=== PATIENT | female | born 1985 | race African-American/Black ===

== ENCOUNTER 2019-06-14 08:45 | Emergency (ER) | payer SELFPAY ==
[~2019-06-14] VITALS: Ht 167.6 cm; Wt 81.6 kg
[2019-06-14 08:59] VITALS: BP 112/78
[2019-06-14] MEDS ORDERED: Ketorolac 60mg Inj IM ONE (09:00)
--- NOTE | 2019-06-14 09:00 | NUR ---
ED Nurse Note: A/OX4. REPORTS OF HAVING FLU-LIKE SYMPTOMS LIKE SORE THROAT, COUGH, ABD PAIN X3DAYS AND REPORTS NO RECENT TRAVEL OR CLOSE CONTACT WITH ANYONE SICK BUT GOES TO SCHOOL. BREATHING NORMAL/EVEN/UNLABORED. SKIN WARM/DRY/INTACT. NAD NOTED.
--- NOTE | 2019-06-14 09:08 | Emergency Room Report ---
History of Present Illness General Chief Complaint: Flu Like Symptoms Source: Patient Present Illness HPI Patient presents with complaints of loss of her voice Also complains of vomiting and diarrhea Questionable chills but denies any documented fever denies any headache denies any posterior neck pain denies any recent travel or contact with anyone that she knows had travel Denies any rash Denies any posterior neck pain or photophobia symptoms started about 3 days ago COVID-19 risk:Travel to affect: No Allergies: Coded Allergies: No Known Allergies (Unverified , 06/14/19) Patient History Past Medical History: see triage record Last Menstrual Period: 06/11/19 Reviewed Nursing Documentation: PMH: Agreed; PSxH: Agreed Nursing Documentation-PMH Past Medical History: No Stated History Review of Systems All Other Systems: negative except mentioned in HPI Physical Exam Vital Signs Date Time Temp Pulse Resp B/P (MAP) Pulse Ox O2 Delivery O2 Flow Rate FiO2 06/14/19 08:53 99.3 88 16 112/78 (89) 99 Room Air Sp02 EP Interpretation: reviewed, normal General Appearance: well appearing, no apparent distress Head: normocephalic, atraumatic Eyes: bilateral eye PERRL, bilateral eye EOMI ENT: EOM grossly intact, other - Pharyngeal erythema airway patent, patient also has consistent findings of laryngitis Neck: full range of motion, supple Respiratory: lungs clear, no respiratory distress, no retraction Cardiovascular #1: regular rate, rhythm Gastrointestinal: non tender, soft Musculoskeletal: normal inspection Neurologic: alert, oriented x3 Psychiatric: normal inspection Skin: no rash Lymphatic: no adenopathy Medical Decision Making Diagnostic Impression: Primary Impression: Laryngitis ER Course Given the patient's history and presentation multiple differentials and consideration Including but not limited to coronavirus, laryngitis, pharyngitis, retropharyngeal abscess, peritonsillar abscess Department of Health does not consider the patient appropriate for testing at this time Patient's exam and findings are consistent with laryngitis Uvula is midline Patient does not appear septic or toxic and will have initial conservative outpatient trial given some of the erythema on the pharyngeal area consideration for bacteria is also entertained Patient placed on antibiotics Patient will return to the ER with any worsening symptoms Last Vital Signs Date Time Temp Pulse Resp B/P (MAP) Pulse Ox O2 Delivery O2 Flow Rate FiO2 06/14/19 08:59 99.3 88 16 112/78 99 Room Air Status: improved Disposition: HOME, SELF-CARE Condition: Improved Scripts Ondansetron* (ZOFRAN*) 4 Mg Tablet 4 MG ORAL Q6H PRN for Nausea & Vomiting, #10 TAB Prov: DukeabbyJulian damon 06/14/19 Amoxicillin* (AMOXIL*) 500 Mg Capsule 500 MG ORAL THREE TIMES A DAY, #21 CAP Prov: ShailaJulian PAVON 06/14/19 Methylprednisolone (Methylprednisolone*) 4MG Dspk 4 MG ORAL DIRECTED for 6 Days, #21 EA 0 Refills Day 1: Two tablets before breakfast, one after lunch, one after dinner, and two at bedtime. If started late in the day, take all six tablets at once or divide into two or three doses, unless otherwise directed by prescriber. Day 2: One tablet before breakfast, one after lunch, one after dinner, and two at bedtime Day 3: One tablet before breakfast, one after lunch, one after dinner, and one at bedtime Day 4: One tablet before breakfast, one after lunch, and one at bedtime Day 5: One tablet before breakfast and one at bedtime Day 6: One tablet before breakfast Prov: ShailaJulian PAVON 06/14/19 Ibuprofen* (MOTRIN*) 600 Mg Tablet 600 MG ORAL Q8H PRN for For Pain, #20 TAB 0 Refills Prov: ShailaJulian PAVON 06/14/19 Additional Instructions: Patient is provided with the discharge instructions notified to follow up with primary doctor in the next 2-3 days otherwise return to the er with any worsening symptoms. Please note that this report is being documented using [employer] technology. This can lead to erroneous entry secondary to incorrect interpretation by the dictating instrument. FaridaJulian aguilar Jun 14, 2019 09:08
[2019-06-14] MEDS ORDERED: AMOXICILLIN500 MG ORAL (10:12)
[2019-06-14] MEDS ORDERED: MEDROL DOSEPAK4 MG ORAL (10:12)
[2019-06-14] MEDS ORDERED: IBUPROFEN600 MG ORAL (10:12)
[2019-06-14] MEDS ORDERED: ZOFRAN4 M3 ORAL (10:12)
[2019-06-14 10:17] VITALS: BP 112/78
--- NOTE | 2019-06-14 10:18 | NUR ---
ED Nurse Note: Pt cleared by health care Provider for discharge. DC instructions/prescription was given and explained to pt and verbalized understanding of teachings. All medical deviecs such as ID band removed. Pt is AAO x4, ambulatory and left with all personal belongings.
== END 2019-06-14 10:21 | disposition home or self-care (01) ==
LOC: EMR 10:00
DX: J11.1 Influenza due to unidentified influenza virus with other respiratory manifestations (principal); R19.7 Diarrhea, unspecified; R11.10 Vomiting, unspecified
CPT/HCPCS: 96372; 99283; J7512